=== PATIENT | male | born 1990 | race Caucasian/White ===

== ENCOUNTER 2017-02-03 14:12 | Emergency (ER) | payer SELFPAY ==
[~2017-02-03 14:12] MED LIST: NO MEDICATIONS
== END 2017-02-03 16:26 | disposition home or self-care (01) ==
LOC: CFTX 14:12 → CED 14:12 → CFTX 16:03
DX: S61.012A Laceration without foreign body of left thumb without damage to nail, initial encounter (principal); F17.200 Nicotine dependence, unspecified, uncomplicated; W26.0XXA Contact with knife, initial encounter; Y92.009 Unspecified place in unspecified non-institutional (private) residence as the place of occurrence of the external cause
CPT/HCPCS: 99283

== ENCOUNTER 2017-03-01 13:22 | Emergency (ER) | payer SELFPAY | END 2017-03-01 14:04 | disposition home or self-care (01) | LOC: SED 13:22 | DX: S01.81XA Laceration without foreign body of other part of head, initial encounter (principal); W45.8XXA Other foreign body or object entering through skin, initial encounter; Y92.009 Unspecified place in unspecified non-institutional (private) residence as the place of occurrence of the external cause | CPT/HCPCS: 12011; 99283 ==